=== PATIENT | female | born 1975 | race Caucasian/White ===

== ENCOUNTER 2016-12-17 08:51 | Emergency (ER) | payer BC ==
[2016-12-17 08:57] VITALS: BP 111/63; PULSE 74; TEMP 97.4; BMI 25.9
--- NOTE | 2016-12-17 09:12 | PDOC ---
History of Present Illness - General Chief Complaint: Injury Stated Complaint: FALL/ RT LT ARM (EMPLOYEE) Time Seen by Provider: 12/17/16 09:02 History Source: Patient Exam Limitations: No Limitations - History of Present Illness Initial Comments: 12/17/16 09:07 41 yr female with c/o injury to left forearm. Pt slipped and fell in the shower this morning. no head trauma. Past History - Past Medical History Allergies/Adverse Reactions: Allergies Allergy/AdvReac Type Severity Reaction Status Date / Time latex Allergy Verified 12/17/16 08:54 latex Allergy Severe Rash Uncoded 12/17/16 08:54 seasonal enviornmental Allergy Mild runny Uncoded 12/17/16 08:54 nose, red itchy eyes Home Medications: Ambulatory Orders NK [No Known Home Medication] 12/17/16 Anemia: No Asthma: Yes Cancer: No Cardiac Disorders: No CVA: No COPD: No CHF: No Dementia: No Diabetes: No GI Disorders: No Disorders: No HTN: No Hypercholesterolemia: No Liver Disease: No Seizures: No Thyroid Disease: No Other medical history: allopecia, angioedema, articaria - Surgical History Abdominal Surgery: No Appendectomy: No Cardiac Surgery: No Cholecystectomy: No Lung Surgery: No Neurologic Surgery: No Orthopedic Surgery: No - Immunization History Immunization Up to Date: Yes - Psycho/Social/Smoking Cessation Hx Anxiety: No Suicidal Ideation: No Smoking Status: No Smoking History: Never smoked Have you smoked in the past 12 months: No Number of Cigarettes Smoked Daily: 0 Information on smoking cessation initiated: No Hx Alcohol Use: No Drug/Substance Use Hx: No Substance Use Type: Alcohol Hx Substance Use Treatment: No Review of Systems - Review of Systems Able to Perform ROS?: Yes Is the patient limited Green[place]ic proficient: No Constitutional: No: Symptoms Reported HEENTM: No: Symptoms Reported Respiratory: No: Symptoms reported Cardiac (ROS): No: Symptoms Reported ABD/GI: No: Symptoms Reported : No: Symptoms Reported Musculoskeletal: Yes: Symptoms Reported Integumentary: No: Symptoms Reported Neurological: No: Symptoms reported *Physical Exam - Vital Signs Last Vital Signs Temp Pulse Resp BP Pulse Ox 97.4 F L 74 18 111/63 100 12/17/16 08:54 12/17/16 08:54 12/17/16 08:54 12/17/16 08:54 12/17/16 08:54 - Physical Exam General Appearance: Yes: Nourished, Appropriately Dressed HEENT: positive: EOMI, LESLI Neck: positive: Supple Respiratory/Chest: positive: Lungs Clear, Normal Breath Sounds. negative: Chest Tender Cardiovascular: positive: Regular Rhythm, Regular Rate Gastrointestinal/Abdominal: positive: Normal Bowel Sounds, Soft Musculoskeletal: positive: Normal Inspection Extremity: positive: Normal Capillary Refill, Normal Inspection, Normal Range of Motion, Tender (left forearm midshaft posteriorly, bruising noted, nv intact FROM of the joints) Integumentary: positive: Normal Color, Dry, Warm Neurologic: positive: Fully Oriented, Alert, Normal Mood/Affect, Normal Response , Motor Strength / ED Treatment Course - RADIOLOGY Radiology Studies Ordered: Category Date Time Status FOREARM- LEFT [RAD] Stat Radiology 12/17/16 09:04 Ordered Medical Decision Making - Medical Decision Making 12/17/16 09:11 cc: slip and fell in the shower injured left forearm no obvious deformity nv intact will get xray to r/o fracture ice pack and motrin for pain 12/17/16 10:03 12/17/16 15:30 xray discussed with pt. all dc inst verbally given to patient and all questions asked and answered at discharge. 12/17/16 15:30 *DC/Admit/Observation/Transfer Diagnosis at time of Disposition: Contusion Qualifiers: Encounter type: initial encounter Contusion area: upper arm Laterality: left Qualified Code(s): S40.022A - Contusion of left upper arm, initial encounter - Discharge Dispostion Disposition: HOME Condition at time of disposition: Improved - Referrals Referrals: Ning Crow [Primary Care Provider] - Von Christianson MD [Staff Physician] - - Patient Instructions Additional Instructions: apply ice every 2hrs for 20 minutes to affected area for the next 2 days while awake take motrin 600mg every 6hrs for pain as needed follow with the orthopedist for follow up if symptoms worsen or persist
[2016-12-17] MEDS ORDERED: IBUPROFEN 600 MG TABLET (FP) PO ONE ×2 (09:24→09:36)
== END 2016-12-17 09:37 | disposition home or self-care (01) ==
LOC: JERFT 08:51
DX: S50.12XA Contusion of left forearm, initial encounter (principal); W16.212A Fall in (into) filled bathtub causing other injury, initial encounter; Y93.E1 Activity, personal bathing and showering; Y92.012 Bathroom of single-family (private) house as the place of occurrence of the external cause
CPT/HCPCS: 73090-TC-LT; 99281-25